=== PATIENT | male | born 1970 | race Caucasian/White ===

== ENCOUNTER 2023-02-12 15:38 | Inpatient (IN) | payer BC ==
[2023-02-12] MEDS ORDERED: Lorazepam 2 MG/ML VIAL ONE (16:30)
[2023-02-12] MEDS ORDERED: Pantoprazole 40 MG VIAL ONE (16:30)
[2023-02-12] MEDS ORDERED: Multivitamins, Adult 10 ML, Thiamine HCl 100 MG, Folic Acid 1 MG in Dextrose 5 %-0.45 %... IV SCH (16:45)
[2023-02-12 16:46] LABS: #Basophils 0.1 10x3/uL (0.0-0.2); #Monocytes 0.3 10x3/uL (0.0-1.1); #Neutrophils 2.6 10x3/uL (1.5-8.4); %Basophils 1.3 % (0.0-2.0); %Eosinophils 0.3 % (0.0-6.0); %Lymphocytes 25.6 % (18.0-47.0); %Neutrophils 65.5 % (40.0-75.0); Hematocrit 41.3 % (38.8-50.0); Hemoglobin 13.8 g/dL (13.5-17.5); Mean Corpuscular HGB CONC 33.4 g/dL (32.0-36.0); Mean Corpuscular Hemoglobin 33.7 pg (27.0-33.0); Mean Corpuscular Volume 100.7 fl (81.2-95.1); Mean Platelet Volume 10.9 fl (7.4-10.4); Platelet Count 137 10x3/uL (150-450); RBC Distribution Width 14.9 % (11.5-14.5)
[2023-02-12] MEDS ORDERED: diphenhydrAMINE 50 MG/ML VIAL ONE (17:02)
[2023-02-12] MEDS ORDERED: Metoclopramide HCl 10 MG/2 ML VIAL ONE (17:02)
[2023-02-12 17:08] LABS: Acetaminophen Less than 10 mcg/mL (10.0-30.0); Alcohol 107.3 mg/dL (Less than 10); Lipase 15 U/L (8-78); Magnesium 1.7 mg/dL (1.6-2.6); Salicylate Less than 8.0 mg/dL (15.0-30.0)
[2023-02-12 17:10] LABS: ALT (SGPT) 62 U/L (8-55); AST (SGOT) 115 U/L (5-34); Albumin 4.7 g/dL (3.5-5.0); Alkaline Phosphatase 128 U/L (40-110); Anion Gap 34 mmol/L (10-20); BUN (Urea Nitrogen) 11 mg/dL (8.4-25.7); Bilirubin, Total 2.3 mg/dL (0.2-1.2); CK (CPK) 85 U/L (30-200); Calc. Creatinine Clearance 0 mL/min (70-130); Calcium 9.1 mg/dL (7.8-10.44); Carbon Dioxide 12 mmol/L (22-29); Chloride 99 mmol/L (98-107); Estimated GFR 104; Globulin 3.3 g/dL (2.4-3.5); Glucose 67 mg/dL (70-105); Potassium 4.3 mmol/L (3.5-5.1); Sodium 141 mmol/L (136-145)
[2023-02-12 19:34] LABS: Lactic Acid 2.8 mmol/L (0.5-2.2)
[2023-02-12] MEDS ORDERED: Ondansetron PF 4 MG/2 ML Vial IVP PRN (19:40)
[2023-02-12] MEDS ORDERED: Calcium Carbonate 500 MG ChewTAB PO PRN (19:40)
[2023-02-12] MEDS ORDERED: Senokot S 8.6-50 MG TAB PO PRN (19:40)
[2023-02-12] MEDS ORDERED: Lorazepam 2 MG/ML VIAL SLOW IVP PRN (19:43)
[2023-02-12] MEDS ORDERED: Magnesium 2 GM/50 ML(in water) 2 GM in Premix 1 BAG IVPB SCH (21:15)
[2023-02-12] MEDS ORDERED: Dextrose 5 %-0.45 % NaCl 1,000 ML IV SCH (21:15)
[2023-02-12] MEDS: chlordiazePOXIDE HCl 25 MG CAP PO SCH (21:49)
[2023-02-12] MEDS: Dextrose 5 %-0.45 % NaCl 1,000 ML IV SCH (21:50)
[2023-02-12] MEDS ORDERED: Morphine 2 MG/ML VIAL SLOW IVP SCH (22:15)
[2023-02-12 22:16] LABS: Anion Gap 24 mmol/L (10-20); BUN (Urea Nitrogen) 9 mg/dL (8.4-25.7); Calc. Creatinine Clearance 0 mL/min (70-130); Calcium 8.2 mg/dL (7.8-10.44); Carbon Dioxide 16 mmol/L (22-29); Chloride 99 mmol/L (98-107); Estimated GFR 103; Glucose 206 mg/dL (70-105); Potassium 3.9 mmol/L (3.5-5.1); Sodium 135 mmol/L (136-145)
[2023-02-12 22:31] VITALS: BMI 22.8
[2023-02-13] MEDS ORDERED: Potassium Chloride 20 MEQ TAB PO SCH (04:45)
[2023-02-13 06:11] LABS: Lactic Acid 0.8 mmol/L (0.5-2.2)
[2023-02-13 06:12] LABS: ALT (SGPT) 40 U/L (8-55); AST (SGOT) 61 U/L (5-34); Albumin 3.8 g/dL (3.5-5.0); Alkaline Phosphatase 91 U/L (40-110); Anion Gap 14 mmol/L (10-20); BUN (Urea Nitrogen) 8 mg/dL (8.4-25.7); Bilirubin, Total 2.5 mg/dL (0.2-1.2); CK (CPK) 69 U/L (30-200); Calc. Creatinine Clearance 108 mL/min (70-130); Calcium 8.3 mg/dL (7.8-10.44); Carbon Dioxide 25 mmol/L (22-29); Chloride 98 mmol/L (98-107); Estimated GFR 95; Globulin 2.8 g/dL (2.4-3.5); Glucose 101 mg/dL (70-105); Phosphorus 1.6 mg/dL (2.3-4.7); Potassium 3.2 mmol/L (3.5-5.1); Protein, Total 6.6 g/dL (6.0-8.3); Sodium 134 mmol/L (136-145)
[2023-02-13 06:18] LABS: Hemoglobin 11.2 g/dL (13.5-17.5); Mean Corpuscular Volume 97.3 fl (81.2-95.1); Mean Platelet Volume 10.6 fl (7.4-10.4); Platelet Count 104 10x3/uL (150-450); RBC Distribution Width 14.4 % (11.5-14.5); Red Blood Cell (RBC) Count 3.29 10x6/uL (4.32-5.72)
[2023-02-13 06:22] LABS: Anisocytosis SLIGHT = 6-15 cells (100X) (0-5/hpf)
[2023-02-13 06:23] LABS: Macrocytosis SLIGHT = 6-15 cells (100X) (0-5/hpf); Platelet Adequacy Comment Appears Decreased
[2023-02-13] MEDS: Dextrose 5 %-0.45 % NaCl 1,000 ML IV SCH ×3 (07:45→21:37)
[2023-02-13] MEDS: Lisinopril 5 MG TAB PO SCH (09:40)
[2023-02-13] MEDS: chlordiazePOXIDE HCl 25 MG CAP PO SCH ×3 (09:40→20:49)
[2023-02-13] MEDS: Folic Acid 1 MG TAB PO SCH (09:40)
[2023-02-13] MEDS: Multivitamin W/ Minerals 1 TAB PO SCH (09:40)
[2023-02-13] MEDS: Thiamine HCl 200 MG/2 ML VIAL SLOW IVP SCH (09:41)
[2023-02-13] MEDS: Pantoprazole 40 MG VIAL IVP SCH (09:41)
[2023-02-13] MEDS: Guaifenesin DM 100-10/5 ML UDCUP PO PRN ×2 (13:00→21:37)
[2023-02-13 13:44] LABS: Bilirubin 1+ (Negative); Blood, Urine 25 (Negative); Clarity Slightly Cloudy (Clear); Glucose, Urine (Dipstick) Normal (Negative); Ketone, Urine 50 mg/dL (Negative); Leukocyte 25 (Negative); Nitrite Positive (Negative); Protein, Urine (Dipstick) 15 mg/dl (Neg-Trace)
[2023-02-13 13:52] LABS: Amphetamine Not Detected (NotDetected); Barbiturates Screen Not Detected (NotDetected); Benzodiazepine Screen Detected (NotDetected); Cocaine Metabolite Screen Not Detected (NotDetected); Methadone Not Detected (NotDetected); Methamphetamine Not Detected (NotDetected); Opiate Screen Detected (NotDetected); Oxycodone Screen Not Detected (NotDetected); Phencyclidine (PCP) Not Detected (NotDetected); THC/Cannabinoid Screen Not Detected (NotDetected); Tricyclic Screen Not Detected (NotDetected)
[2023-02-13 14:28] LABS: Bacteria/HPF 1+ HPF (None Seen); RBC/HPF 0-3 HPF (0-3); Squamous Epithelial 0-3 HPF (0-3); WBC/HPF 0-3 HPF (0-3)
[2023-02-14] MEDS: Dextrose 5 %-0.45 % NaCl 1,000 ML IV SCH (06:03)
[2023-02-14] MEDS ORDERED: Magnesium 2 GM/50 ML(in water) 2 GM in Premix 1 BAG IVPB SCH (08:00)
[2023-02-14] MEDS ORDERED: Potassium Chloride 20 MEQ TAB PO SCH (08:00)
[2023-02-14] MEDS: Folic Acid 1 MG TAB PO SCH (09:07)
[2023-02-14] MEDS: chlordiazePOXIDE HCl 25 MG CAP PO SCH (09:07)
[2023-02-14] MEDS: Multivitamin W/ Minerals 1 TAB PO SCH (09:07)
[2023-02-14] MEDS: Lisinopril 5 MG TAB PO SCH (09:08)
[2023-02-14] MEDS: Thiamine HCl 200 MG/2 ML VIAL SLOW IVP SCH (09:09)
[2023-02-14] MEDS: Pantoprazole 40 MG VIAL IVP SCH (09:09)
[2023-02-14] MEDS: Guaifenesin DM 100-10/5 ML UDCUP PO PRN (09:38)
[2023-02-14 12:05] VITALS: BP 136/75; TEMP 98.5
== END 2023-02-14 12:05 | disposition home or self-care (01) | DRG 897 ==
LOC: CSHERS 15:38 → CSHTELE 21:00 → OBSVTOIN 21:01
PROVIDERS: ADMIT Student in an Organized Health Care Education/Training Program; ATTEND Internal Medicine
DX: F10.239 Alcohol dependence with withdrawal, unspecified (principal); E87.29 Other acidosis; Y90.5 Blood alcohol level of 100-119 mg/100 ml; I10 Essential (primary) hypertension; K21.9 Gastro-esophageal reflux disease without esophagitis; G89.29 Other chronic pain; M54.9 Dorsalgia, unspecified; E86.0 Dehydration; F39 Unspecified mood [affective] disorder; D69.6 Thrombocytopenia, unspecified; D53.9 Nutritional anemia, unspecified; K29.00 Acute gastritis without bleeding; E87.6 Hypokalemia; E83.42 Hypomagnesemia; Z88.0 Allergy status to penicillin; Z79.899 Other long term (current) drug therapy; Z90.49 Acquired absence of other specified parts of digestive tract
CPT/HCPCS: 36415; 36416; 70450; 71045; 76705; 80053; 80306; 80307; 81001; 82010; 82550; 83605; 83690; 83735; 84100; 85025; 93005; 94760; C9113; J1200; J2060; J2272; J2405; J2765; J3411; J3475; J7042